=== PATIENT | male | born 1945 | race Caucasian/White ===

== ENCOUNTER 2023-01-18 13:02 | Outpatient (CLI) | payer MEDICARE | END 2023-01-18 13:03 | disposition home or self-care (01) | LOC: BICMAMMO 13:02 | PROVIDERS: ATTEND Family Medicine | DX: Z13.820 Encounter for screening for osteoporosis (principal) | CPT/HCPCS: 77080 ==

== ENCOUNTER 2023-01-25 10:33 | Outpatient (CLI) | payer MEDICARE ==
[2023-01-25 12:51] LABS: #Basophils 0.1 10x3/uL (0.0-0.2); #Eosinphils 0.3 10x3/uL (0.0-0.5); #Monocytes 0.6 10x3/uL (0.0-1.1); #Neutrophils 2.6 10x3/uL (1.5-8.4); %Basophils 1.6 % (0.0-2.0); %Eosinophils 5.2 % (0.0-6.0); %Lymphocytes 28.8 % (18.0-47.0); %Monocytes 11.9 % (0.0-10.0); %Neutrophils 52.3 % (40.0-75.0); Hemoglobin 13.1 g/dL (13.5-17.5); Mean Corpuscular HGB CONC 32.6 g/dL (32.0-36.0); Mean Corpuscular Hemoglobin 30.8 pg (27.0-33.0); Mean Corpuscular Volume 94.6 fl (81.2-95.1); Mean Platelet Volume 11.2 fl (7.4-10.4); Platelet Count 204 10x3/uL (150-450); RBC Distribution Width 13.2 % (11.5-14.5); Red Blood Cell (RBC) Count 4.25 10x6/uL (4.32-5.72)
== END 2023-01-25 10:34 | disposition home or self-care (01) ==
LOC: LABBT 10:33
PROVIDERS: ATTEND Orthopaedic Surgery Hand Surgery
DX: Z01.818 Encounter for other preprocedural examination (principal); M65.321 Trigger finger, right index finger; M65.331 Trigger finger, right middle finger; M65.351 Trigger finger, right little finger
CPT/HCPCS: 85025; 93005; 93010

== ENCOUNTER 2023-01-30 05:38 | Day surgery (SDC) | payer MEDICARE ==
[2023-01-25 14:25] VITALS: BMI 25.1
[2023-01-30] MEDS ORDERED: Betamet Acet/Betamet Na Ph 30 MG/5 ML VIAL ONE (06:13)
[2023-01-30] MEDS ORDERED: Bupivacaine PF 0.5% 30 ML VIAL ONE (06:13)
[2023-01-30] MEDS ORDERED: Bacitracin Zinc Ointment 30 gm TUBE ONE (06:13)
[2023-01-30] MEDS ORDERED: Neomycin-Polymyxin 1 ML AMP ONE (06:13)
[2023-01-30] MEDS ORDERED: Sodium Chloride 0.9% 100 ML ONE (06:50)
[2023-01-30] MEDS ORDERED: CEFAZOLIN 2 GM VIAL ONE (06:50)
[2023-01-30] MEDS ORDERED: fentaNYL PF 100 MCG/2 ML SYRINGE ONE (06:59)
[2023-01-30] MEDS ORDERED: PROPOFOL 200 MG/20 ML VIAL ONE (07:08)
[2023-01-30] MEDS ORDERED: Lidocaine 1% PF 5 ML VIAL ONE (07:08)
[2023-01-30] MEDS ORDERED: ePHEDrine Sulfate 50 MG/10 ML VIAL ONE (07:08)
[2023-01-30] MEDS ORDERED: Ondansetron PF 4 MG/2 ML Vial ONE (07:08)
[2023-01-30] MEDS ORDERED: Dexamethasone 20 MG/5 ML VIAL ONE (07:08)
[2023-01-30 08:49] LABS: Hemoglobin A1c 5.7 % (4.0-6.0)
== END 2023-01-30 09:10 | disposition home or self-care (01) ==
LOC: SDC 05:38
PROVIDERS: ATTEND Orthopaedic Surgery Hand Surgery
PROC: 0LN70ZZ Release Right Hand Tendon, Open Approach (ICD-10-PCS; principal; 2023-01-30)
PROC: 0LN70ZZ Release Right Hand Tendon, Open Approach (ICD-10-PCS; 2023-01-30)
PROC: 0LN70ZZ Release Right Hand Tendon, Open Approach (ICD-10-PCS; 2023-01-30)
DX: M65.321 Trigger finger, right index finger (principal); M65.331 Trigger finger, right middle finger; M65.351 Trigger finger, right little finger; M65.322 Trigger finger, left index finger; M65.332 Trigger finger, left middle finger; M19.041 Primary osteoarthritis, right hand; Z85.46 Personal history of malignant neoplasm of prostate; Z87.891 Personal history of nicotine dependence; Z88.1 Allergy status to other antibiotic agents
CPT/HCPCS: 36415; 83036; J0702; J1100; J2405; J2704; J3490; S0020

== ENCOUNTER 2024-08-12 10:30 | Inpatient (IN) | payer MEDICARE ==
[2024-08-12 11:30] VITALS: BMI 24.3
[2024-08-19] MEDS ORDERED: fentaNYL 50 mcg/mL 1 mL Vial ONE ×3 (09:24→14:35)
[2024-08-19] MEDS ORDERED: EPINEPHrine 1 MG/ML VIAL ONE (09:24)
[2024-08-19] MEDS ORDERED: Bupivacaine 0.25% HCL 30 ML VIAL ONE (09:25)
[2024-08-19] MEDS ORDERED: Midazolam HCl 2 mg/2 ml Vial ONE (09:25)
[2024-08-19] MEDS ORDERED: Lidocaine 1% PF 5 ML VIAL ONE (09:53)
[2024-08-19] MEDS ORDERED: Rocuronium Bromide 10 MG/ML (10ML VIAL) ONE (09:53)
[2024-08-19] MEDS ORDERED: PROPOFOL 20 ML ONE (09:54)
[2024-08-19] MEDS ORDERED: Dextrose 50% Abboject 50 ML SYRINGE ONE (10:26)
[2024-08-19] MEDS ORDERED: fentaNYL PF 100 MCG/2 ML SYRINGE ONE ×2 (11:02→15:27)
[2024-08-19] MEDS ORDERED: cefOXitin 2 GM VIAL ONE (11:25)
[2024-08-19] MEDS ORDERED: Dexamethasone 20 MG/5 ML VIAL ONE (11:58)
[2024-08-19] MEDS ORDERED: ePHEDrine Sulfate 50 MG/10 ML VIAL ONE (12:04)
[2024-08-19] MEDS ORDERED: Ondansetron PF 4 MG/2 ML Vial ONE (13:40)
[2024-08-19] MEDS ORDERED: SUGAMMADEX SODIUM 200 MG/2 ML VIAL ONE (13:47)
[2024-08-19] MEDS ORDERED: HYDROmorphone 0.5 MG/0.5 ML SYRINGE ONE ×2 (14:35→15:28)
[2024-08-19] MEDS ORDERED: hydrALAZINE 20 MG/ML VIAL SLOW IVP PRN (15:36)
[2024-08-19] MEDS ORDERED: Ondansetron PF 4 MG/2 ML Vial IVP PRN (15:36)
[2024-08-19] MEDS ORDERED: Promethazine HCl 25 MG/ML VIAL IM PRN (15:36)
[2024-08-19] MEDS ORDERED: Ipratropium/Albuterol 3 ML NEB NEB PRN (15:36)
[2024-08-19] MEDS ORDERED: Naloxone HCl 0.4 mg/ml Vial IVP PRN (15:36)
[2024-08-19] MEDS ORDERED: traMADol HCl 50 MG TAB PO PRN (15:36)
[2024-08-19] MEDS: D5 1/2 NS w/20 mEq KCL 1,000 ML IV SCH (18:01)
[2024-08-19] MEDS: cefOXitin Sodium 1 GM in Sodium Chloride 0.9% 100 ML IVPB SCH (21:06)
[2024-08-19] MEDS: Acetaminophen 500 MG TAB PO SCH (21:07)
[2024-08-19] MEDS: Famotidine/PF 20 mg/2ml Vial SLOW IVP SCH (21:07)
[2024-08-19] MEDS: Famotidine 20 MG TAB PO SCH (22:34)
[2024-08-20 05:52] LABS: #Basophils Less than 0.03 10x3/uL (0.0-0.2); #Eosinophils Less than 0.03 10x3/uL (0.0-0.7); %Basophils 0.1 % (0.0-1.0); %Lymphocytes 2.5 % (21.0-51.0); %Monocytes 8.8 % (0.0-10.0); Hematocrit 34.9 % (42.0-52.0); Hemoglobin 11.6 g/dL (14.0-18.0); Mean Corpuscular HGB CONC 33.2 g/dL (32.0-36.0); Mean Corpuscular Hemoglobin 33.5 pg (27.0-31.0); Mean Corpuscular Volume 100.9 fL (78.0-98.0); Mean Platelet Volume 11.3 fL (7.4-10.4); Platelet Count 149 10x3/uL (130-400); RBC Distribution Width 12.9 % (11.5-14.5); Red Blood Cell (RBC) Count 3.46 mill/uL (4.70-6.10)
[2024-08-20 06:04] LABS: Anion Gap 15 mmol/L (10-20); BUN (Urea Nitrogen) 11 mg/dL (8.4-25.7); Calc. Creatinine Clearance 77 mL/min (70-130); Calcium 8.6 mg/dL (7.8-10.44); Carbon Dioxide 21 mmol/L (23-31); Chloride 108 mmol/L (98-107); Estimated GFR 89; Glucose 117 mg/dL (83-110); Potassium 4.8 mmol/L (3.5-5.1); Sodium 139 mmol/L (136-145)
[2024-08-20] MEDS: Enoxaparin 40 MG (0.4 mL) SYRINGE SC SCH (08:33)
[2024-08-20] MEDS: oxyCODONE 5 MG TAB PO PRN (10:54)
[2024-08-20] MEDS: Morphine 4 MG/ML VIAL SLOW IVP PRN (11:26)
[2024-08-21 08:41] VITALS: BP 131/71; TEMP 97.5
== END 2024-08-21 13:22 | disposition home health service (06) | DRG 330 ==
LOC: SURG A 08-19 08:15 → EDSTATUS 08-19 10:30 → SURG A 08-19 17:54
PROVIDERS: ADMIT Surgery; ATTEND Surgery
PROC: 0DBN4ZZ Excision of Sigmoid Colon, Percutaneous Endoscopic Approach (ICD-10-PCS; principal; 2024-08-19)
PROC: 0DBP4ZZ Excision of Rectum, Percutaneous Endoscopic Approach (ICD-10-PCS; 2024-08-19)
PROC: 8E0W4CZ Robotic Assisted Procedure of Trunk Region, Percutaneous Endoscopic Approach (ICD-10-PCS; 2024-08-19)
DX: C20 Malignant neoplasm of rectum (principal); C77.5 Secondary and unspecified malignant neoplasm of intrapelvic lymph nodes; Z90.79 Acquired absence of other genital organ(s)
CPT/HCPCS: 36415; 36416; 80048; 85025; 88305; 88309; 97139; A4314; A4649; J0171; J0665; J0694; J1100; J1650; J2250; J2272; J2405; J2704; J3010; J3480; J3490; J7999

== ENCOUNTER 2024-08-12 10:44 | Outpatient (CLI) | payer MEDICARE ==
[2024-08-12 13:49] LABS: #Basophils 0.03 10x3/uL (0.0-0.2); %Basophils 0.7 % (0.0-1.0); %Eosinophils 3.8 % (0.0-10.0); %Lymphocytes 14.1 % (21.0-51.0); %Monocytes 17.6 % (0.0-10.0); %Neutrophils 63.6 % (42.0-75.0); Hematocrit 36.5 % (42.0-52.0); Hemoglobin 12.1 g/dL (14.0-18.0); Mean Corpuscular HGB CONC 33.2 g/dL (32.0-36.0); Mean Corpuscular Hemoglobin 33.6 pg (27.0-31.0); Mean Corpuscular Volume 101.4 fL (78.0-98.0); Platelet Count 165 10x3/uL (130-400); RBC Distribution Width 13.2 % (11.5-14.5)
[2024-08-12 14:02] LABS: Anion Gap 12 mmol/L (10-20); BUN (Urea Nitrogen) 12 mg/dL (8.4-25.7); Calc. Creatinine Clearance 0 mL/min (70-130); Calcium 9.7 mg/dL (7.8-10.44); Carbon Dioxide 27 mmol/L (23-31); Chloride 107 mmol/L (98-107); Estimated GFR 90; Glucose 71 mg/dL (83-110); Potassium 4.1 mmol/L (3.5-5.1); Sodium 142 mmol/L (136-145)
== END 2024-08-12 10:45 | disposition home or self-care (01) ==
LOC: LABBT 10:44
PROVIDERS: ATTEND Surgery
DX: Z01.818 Encounter for other preprocedural examination (principal); C20 Malignant neoplasm of rectum
CPT/HCPCS: 80048; 85025; 93005; 93010

== ENCOUNTER → 2024-09-17 | Outpatient (CLI) | payer MEDICARE | LOC: BICCT 08:26 | PROVIDERS: ATTEND Internal Medicine Hematology & Oncology | DX: C61 Malignant neoplasm of prostate (principal); C20 Malignant neoplasm of rectum; D70.8 Other neutropenia; Z98.890 Other specified postprocedural states | CPT/HCPCS: 71260; 74177 ==

== ENCOUNTER 2024-09-22 10:39 | Outpatient (CLI) | payer MEDICARE ==
[2024-09-22] MEDS ORDERED: MD-Gastroview 120 ML BOT ONE (10:42)
== END 2024-09-22 10:40 | disposition home or self-care (01) ==
LOC: RAD 10:39
PROVIDERS: ATTEND Surgery
DX: C20 Malignant neoplasm of rectum (principal); K91.89 Other postprocedural complications and disorders of digestive system
CPT/HCPCS: 74280; Q9963

== ENCOUNTER 2024-09-26 09:36 | Outpatient (CLI) | payer MEDICARE ==
[2024-09-26 10:59] LABS: #Basophils 0.03 10x3/uL (0.0-0.2); %Basophils 0.5 % (0.0-1.0); %Eosinophils 4.7 % (0.0-10.0); %Lymphocytes 7.6 % (21.0-51.0); %Monocytes 12.5 % (0.0-10.0); %Neutrophils 74.3 % (42.0-75.0); Hematocrit 37.2 % (42.0-52.0); Hemoglobin 12.2 g/dL (14.0-18.0); Mean Corpuscular HGB CONC 32.8 g/dL (32.0-36.0); Mean Corpuscular Hemoglobin 32.4 pg (27.0-31.0); Mean Corpuscular Volume 98.7 fL (78.0-98.0); Mean Platelet Volume 10.2 fL (7.4-10.4); Platelet Count 218 10x3/uL (130-400); RBC Distribution Width 12.3 % (11.5-14.5); Red Blood Cell (RBC) Count 3.77 mill/uL (4.70-6.10)
[2024-09-26 11:51] LABS: Anion Gap 11 mmol/L (10-20); BUN (Urea Nitrogen) 12 mg/dL (8.4-25.7); Calc. Creatinine Clearance 0 mL/min (70-130); Calcium 9.7 mg/dL (7.8-10.44); Carbon Dioxide 27 mmol/L (23-31); Estimated GFR 89; Glucose 90 mg/dL (83-110)
[2024-09-26 12:17] LABS: Chloride 106 mmol/L (98-107); Sodium 140 mmol/L (136-145)
== END 2024-09-26 09:37 | disposition home or self-care (01) ==
LOC: LABBT 09:36
PROVIDERS: ATTEND Surgery
DX: Z01.812 Encounter for preprocedural laboratory examination (principal); C20 Malignant neoplasm of rectum
CPT/HCPCS: 80048; 85025

== ENCOUNTER 2024-09-26 10:30 | Inpatient (IN) | payer MEDICARE ==
[2024-09-26 09:53] VITALS: BMI 22.9
[2024-09-30] MEDS ORDERED: PROPOFOL 20 ML ONE (08:39)
[2024-09-30] MEDS ORDERED: Rocuronium Bromide 10 MG/ML (10ML VIAL) ONE (08:39)
[2024-09-30] MEDS ORDERED: Lidocaine 1% PF 5 ML VIAL ONE (08:39)
[2024-09-30] MEDS ORDERED: EPINEPHrine 1 MG/ML VIAL ONE (09:55)
[2024-09-30] MEDS ORDERED: Bupivacaine 0.25% HCL 30 ML VIAL ONE (09:56)
[2024-09-30] MEDS ORDERED: fentaNYL PF 100 MCG/2 ML SYRINGE ONE ×3 (09:58→11:55)
[2024-09-30] MEDS ORDERED: cefOXitin 2 GM VIAL ONE (10:18)
[2024-09-30] MEDS ORDERED: Dexamethasone 20 MG/5 ML VIAL ONE (10:26)
[2024-09-30] MEDS ORDERED: ePHEDrine Sulfate 50 MG/10 ML VIAL ONE (10:38)
[2024-09-30] MEDS ORDERED: Ondansetron PF 4 MG/2 ML Vial ONE (11:05)
[2024-09-30] MEDS ORDERED: fentaNYL 50 mcg/mL 1 mL Vial ONE (11:13)
[2024-09-30] MEDS ORDERED: Sodium Chloride 0.9% 250 ML 500 ML ONE (11:14)
[2024-09-30] MEDS ORDERED: HYDROmorphone 0.5 MG/0.5 ML SYRINGE ONE ×2 (11:38→11:55)
[2024-09-30] MEDS ORDERED: Morphine 4 MG/ML VIAL ONE (12:13)
[2024-09-30] MEDS ORDERED: Midazolam HCl 2 mg/2 ml Vial ONE (12:13)
[2024-09-30] MEDS ORDERED: Ipratropium/Albuterol 3 ML NEB NEB PRN (12:44)
[2024-09-30] MEDS ORDERED: Naloxone HCl 0.4 mg/ml Vial IVP PRN (12:44)
[2024-09-30] MEDS ORDERED: oxyCODONE 5 MG TAB PO PRN (12:44)
[2024-09-30] MEDS ORDERED: Ondansetron PF 4 MG/2 ML Vial IVP PRN (12:44)
[2024-09-30] MEDS ORDERED: Dextrose 5% in Water 1,000 ML IV PRN (12:44)
[2024-09-30] MEDS ORDERED: Morphine 4 MG/ML VIAL SLOW IVP PRN (12:44)
[2024-09-30] MEDS ORDERED: Glucagon 1 MG/ML KIT IM PRN (12:44)
[2024-09-30] MEDS ORDERED: hydrALAZINE 20 MG/ML VIAL SLOW IVP PRN (12:44)
[2024-09-30] MEDS ORDERED: Dextrose 50% Abboject 50 ML SYRINGE SLOW IVP PRN (12:44)
[2024-09-30] MEDS ORDERED: traMADol HCl 50 MG TAB PO PRN (12:44)
[2024-09-30] MEDS ORDERED: Promethazine HCl 25 MG/ML VIAL IM PRN (12:44)
[2024-09-30] MEDS ORDERED: D5 1/2 NS w/20 mEq KCL 1,000 ML ONE (12:48)
[2024-09-30] MEDS: D5 1/2 NS w/20 mEq KCL 1,000 ML IV SCH (14:27)
[2024-09-30] MEDS ORDERED: Acetaminophen 500 MG TAB ONE (14:52)
[2024-09-30] MEDS: Acetaminophen 500 MG TAB PO SCH (14:54)
[2024-09-30] MEDS: Tamsulosin HCl 0.4 MG CAP PO SCH (18:21)
[2024-09-30] MEDS: Famotidine 20 MG TAB PO SCH (22:15)
[2024-09-30] MEDS: Famotidine/PF 20 mg/2ml Vial SLOW IVP SCH (22:21)
[2024-10-01 05:36] LABS: #Basophils Less than 0.03 10x3/uL (0.0-0.2); #Eosinophils Less than 0.03 10x3/uL (0.0-0.7); %Neutrophils 83.7 % (42.0-75.0); Mean Corpuscular Volume 96.5 fL (78.0-98.0); RBC Distribution Width 12.3 % (11.5-14.5)
[2024-10-01 05:55] LABS: %Basophils 0.2 % (0.0-1.0); %Lymphocytes 4.4 % (21.0-51.0); %Monocytes 11.2 % (0.0-10.0); Hematocrit 33.1 % (42.0-52.0); Hemoglobin 11.1 g/dL (14.0-18.0); Mean Corpuscular HGB CONC 33.5 g/dL (32.0-36.0); Mean Corpuscular Hemoglobin 32.4 pg (27.0-31.0); Mean Platelet Volume 10.3 fL (7.4-10.4); Platelet Count 175 10x3/uL (130-400); Red Blood Cell (RBC) Count 3.43 mill/uL (4.70-6.10)
[2024-10-01] MEDS: Tamsulosin HCl 0.4 MG CAP PO SCH (08:42)
[2024-10-01] MEDS: Enoxaparin 40 MG (0.4 mL) SYRINGE SC SCH (08:43)
[2024-10-01 09:08] VITALS: BP 131/67; TEMP 98
== END 2024-10-01 11:35 | disposition home or self-care (01) | DRG 331 ==
LOC: SURG A 09-30 07:10
PROVIDERS: ADMIT Surgery; ATTEND Surgery
PROC: 0DBB4ZZ Excision of Ileum, Percutaneous Endoscopic Approach (ICD-10-PCS; principal; 2024-09-30)
DX: Z43.2 Encounter for attention to ileostomy (principal); R33.9 Retention of urine, unspecified; Z90.79 Acquired absence of other genital organ(s); Z88.1 Allergy status to other antibiotic agents
CPT/HCPCS: 36415; 85025; 88304; A4649; J0171; J0665; J0694; J1100; J1650; J2250; J2272; J2405; J2704; J3010; J3480; J7050